=== PATIENT | female | born 1995 | race Two or more races ===

== ENCOUNTER 2018-09-21 23:23 | Emergency (ER) | payer SELFPAY ==
[~2018-09-21] VITALS: Ht 152.4 cm; Wt 63.6 kg
[2018-09-22] MEDS ORDERED: LIDOCAINE 1% 10 ML VIAL INJ ONE (00:45)
[2018-09-22] MEDS ORDERED: BACITRACIN 0.9 GM PACKET OINTMENT TP ONE (01:15)
[2018-09-22 01:22] VITALS: BP 124/86
== END 2018-09-22 01:26 | disposition home or self-care (01) ==
LOC: EMS 23:24
DX: S61.411A Laceration without foreign body of right hand, initial encounter (principal); Z88.0 Allergy status to penicillin; X78.0XXA Intentional self-harm by sharp glass, initial encounter; Y93.89 Activity, other specified; Y92.89 Other specified places as the place of occurrence of the external cause; Y99.8 Other external cause status
CPT/HCPCS: 12002; 99283; J3490